=== PATIENT | male | born 1980 | race Caucasian/White ===

== ENCOUNTER 2018-11-06 09:47 | Emergency (ER) | payer MEDICAID ==
[~2018-11-06] VITALS: Ht 167.6 cm; Wt 86.2 kg
[2018-11-06 09:47] VITALS: BP_SYST 159
[2018-11-06] MEDS ORDERED: IBUPROFEN 800 MG TABLET PO ONE (10:30)
[2018-11-06 11:11] VITALS: BP_SYST 159
== END 2018-11-06 11:11 | disposition home or self-care (01) ==
LOC: SED 09:47
DX: S80.01XA Contusion of right knee, initial encounter (principal); W22.8XXA Striking against or struck by other objects, initial encounter; Y93.72 Activity, wrestling; Y92.89 Other specified places as the place of occurrence of the external cause; Y99.8 Other external cause status
CPT/HCPCS: 73564; 99283

== ENCOUNTER 2018-11-11 21:41 | Emergency (ER) | payer MEDICAID ==
[~2018-11-11] VITALS: Ht 167.6 cm; Wt 81.6 kg
[2018-11-11 21:46] VITALS: BP_SYST 160
[2018-11-11] MEDS ORDERED: KETOROLAC TROMETHAMINE 30 MG VIAL IM ONE (23:30)
[2018-11-12 00:47] VITALS: BP_SYST 160
== END 2018-11-12 00:47 | disposition home or self-care (01) ==
LOC: SED 21:41
DX: S83.91XA Sprain of unspecified site of right knee, initial encounter (principal); X58.XXXA Exposure to other specified factors, initial encounter; Y93.72 Activity, wrestling; Y92.89 Other specified places as the place of occurrence of the external cause; Y99.8 Other external cause status
CPT/HCPCS: 73564; 99283; J1885